=== PATIENT | female | born 1955 | race Asian ===

== ENCOUNTER → 2021-08-21 14:52 | Outpatient (CLI) | payer MEDICARE, OTHER, SELFPAY ==
[2021-08-21 16:15] LABS: COVID19 -Nasal RAPID Negative (Negative)
== END ==
PROVIDERS: Family Provider Registered Nurse Diabetes Educator; PCP Registered Nurse Diabetes Educator; Referring Provider Surgery; Visit Provider Surgery
DX: Z01.812 Encounter for preprocedural laboratory examination (principal); Z20.822 Contact with and (suspected) exposure to COVID-19
CPT/HCPCS: 87635; C9803

== ENCOUNTER 2021-08-22 12:28 | Day surgery (SDC) | payer MEDICARE, OTHER, SELFPAY ==
--- NOTE | 2021-08-22 | PATH_ITS ---
[facility] Accession Number: [id number] . 01 Material submitted: . PART A: rectum - RECTAL POLYP PART B: colon - ASCENDING COLON . 02 Diagnosis: A. Rectal Polyp: Tubular adenoma. . B. Ascending Colon: Tubular adenoma. MRV 08/26/2021 1518 Local . 02 Electronically signed: . Fabiola Feng MD, Pathologist NPI- [id number] . 01 Gross description: . Part A: RECTAL POLYP: Received in formalin is 1 fragment(s) of redding, soft tissue measuring 0.7 x 0.6 x 0.6 cm submitted entirely in 1 cassette(s) Part B: ASCENDING COLON : Received in formalin is 1 fragment(s) of redding, soft tissue measuring 0.3 x 0.2 x 0.2 cm submitted entirely in 1 cassette(s) /HOLLY 08/23/20211950 Local . 02 Pathologist provided ICD-10: K63.5 . 02 CPT . 923562 Performed at: 01 [facility] [address], [place], [place] [id number] MD José Miguel Cabello MD Phone: [phone] [facility]formed [facility]: 02 [facility] [address] [place], [place] [id number] MD Nery Bauer MD Phone: [phone]
[2021-08-22 12:55] VITALS: BP 125/79; PULSE 84; RESP 16; TEMP 36.3; O2SAT 95; BMI 30.1
[2021-08-22] MEDS: LACTATED RINGERS 1,000 ML 200 ML IV (13:03)
--- NOTE | 2021-08-22 13:47 | PM.HP.1 ---
History of Present Illness History of Present Illness Date Patient Seen: 08/22/21 Time Patient Seen: 13:48 Chief complaint: SDC Narrative: The patient presents for colorectal sreening following a positive fecal immunochemical test (FIT). Previous colonoscopy 12 years ago normal. No personal or family history of colon cancer. On further history denies any recent gastrointestinal symptoms. No nausea, vomiting, abdominal pain, loss of appetite, unexplained weight loss, change in bowel habits, diarrhea, constipation, melena, hematochezia, or bright red blood per rectum. Patient History Medical History Cholecystectomy planned Diabetes Hypertension Persistent headaches Sleep apnea with use of continuous positive airway pressure (CPAP) Smoker Surgical History Status post lumbar surgery Family & Social History Social History: household members spouse Tobacco & Substance use: Smoking Status Current every day smoker alcohol intake never Substance Use Type does not use Meds Home Medications and Allergies Home Medications Medication Instructions Recorded Confirmed Type allopurinol 300 mg tablet 300 mg PO DAILY 08/22/21 08/22/21 History amitriptyline 25 mg tablet 25 mg PO DAILY 08/22/21 08/22/21 History amlodipine 5 mg tablet 5 mg PO DAILY 08/22/21 08/22/21 History atorvastatin 80 mg tablet 80 mg PO DAILY 08/22/21 08/22/21 History dulaglutide 0.75 mg/0.5 mL 0.75 mg SUBCUT DAILY 08/22/21 08/22/21 History subcutaneous pen injector (Trulicity) levothyroxine 50 mcg tablet 50 mcg PO DAILY 08/22/21 08/22/21 History (Synthroid) lidocaine 5 % topical patch 1 patch TOPICAL DIRECTED 08/22/21 08/22/21 History losartan 25 mg tablet 25 mg PO DAILY 08/22/21 08/22/21 History losartan 25 mg tablet 25 mg PO DAILY 08/22/21 08/22/21 History metformin 500 mg tablet 500 mg PO DAILY 08/22/21 08/22/21 History Allergies Allergy/AdvReac Type Severity Reaction Status Date / Time lisinopril Allergy Swelling Verified 08/22/21 12:49 of Lip/Tongue/Throat meperidine [From Demerol] Allergy Difficulty Verified 08/22/21 12:49 Breathing oyster extract AdvReac Diarrhea Verified 08/22/21 12:49 Exam Vital Signs (past 8 hours): - 08/22/21 12:55 Temperature 97.4 F L Pulse Rate 84 Respiratory Rate 16 Blood Pressure 125/79 Pulse Oximetry 95 Oxygen Delivery Method Room Air Narrative Exam Narrative: GENERAL: Adult female in no apparent distress HEENT: No scleral icterus CV: Regular rate, no peripheral edema LUNGS: No increased work of breathing. Patient speaks in full sentences without oxygen support. ABDOMEN: Soft, non-tender, non-distended NEURO: Nonfocal, normal strength throughout SKIN: Warm and dry Assessment & Plan Assessment and plan (1) Positive FIT (fecal immunochemical test): Status: Acute Assessment & Plan narrative: The patient requires colorectal screening and colonoscopy is recommended secondary to a positive fecal immunochemical test. Technical details were discussed. Risks, benefits, alternatives explained. Risks including but not limited to myocardial infarction, aspiration, bleeding, pain, missed lesion, incomplete examination, need for further radiographic studies, colonic perforation, and need for major abdominal surgery were discussed. All questions were answered to their satisfaction, and they are in agreement with this plan. Time Spent With Patient Critical Care time: I spent a total of [] minutes of critical care time on this patient's care today; this time is exclusive of procedural time.
[2021-08-22] MEDS: MIDAZOLAM 5 MG/5 ML VIAL IV (14:01)
[2021-08-22] MEDS: fentaNYL 250 MCG/5 ML INJ IV (14:01)
--- NOTE | 2021-08-22 14:29 | PM.OP.COLON ---
Operative Date/Time/Diagnoses Date of procedure: 08/22/21 Time of procedure: 14:29 Pre-op diagnosis: Positive FIT Post-op diagnosis: same Procedure & Clinicians Study performed: Colonoscopy Same procedure as scheduled: Yes Indications: Positive FIT Surgeon: Oliverio Lowe Procedure Notes Procedure in detail: Medications: Conscious sedation using mg IV 5 midazolam and 200 mcg IV of fentanyl The history and physical was performed/updated and the patient is ASA class is 2. The procedure was discussed in detail with the patient. Potential risks complications including infection, bleeding, missed diagnosis, perforation, need for surgery, and were explained. Their questions were answered and informed consent was obtained. Patient was brought to the procedure room and placed standard monitoring equipment. The patient's vital signs were monitored continuously throughout the entire procedure. Prior to starting time-out was performed. The patient was placed in the left lateral recumbent position. Procedural sedation was administered. Examination began with a thorough inspection of the perianal area there was no evidence of fissures, fistulae, external hemorrhoids or cutaneous malignancy. The colonoscopy scope was then placed into the anal canal and was advanced to the cecum, which was identified by the ileocecal valve, the appendiceal orifice and the confluence of the taenia. The scope was then slowly withdrawn examining colon thoroughly in all directions, irrigating it of any residual stool. FINDINGS 1. Rectum-1 cm pedunculated polyp removed with cold snare. Distal to the lesion 3 mL of ink were injected into the submucosa 2. Ascending colon-3 mm polyp removed with biopsy forceps The patient tolerated the procedure well. They will be discharged once criteria are met. The prep was of good/excellent quality. The withdrawl time was 7minutes. The sedation time was 27 minutes. Specimen(s): other (rectal, ascending ) Complications: none Impression: colonic polyps Post-procedure Recommendations: Colonoscopy in 5 years Disposition: same day surgery
[2021-08-22 14:33] VITALS: BP 104/61; PULSE 70; RESP 16; TEMP 36.2; O2SAT 95
[2021-08-22 14:37] VITALS: BP 104/61; PULSE 71; RESP 15; O2SAT 94
[2021-08-22 14:42] VITALS: BP 105/59; PULSE 70; RESP 19; O2SAT 95
[2021-08-22 14:48] VITALS: BP 118/74; PULSE 76; RESP 14; TEMP 36.4; O2SAT 95
[2021-08-22 14:55] VITALS: BP 128/75; PULSE 71; RESP 21; TEMP 36.2; O2SAT 95
== END 2021-08-22 15:05 | disposition home or self-care (01) ==
PROVIDERS: Family Provider Registered Nurse Diabetes Educator; PCP Registered Nurse Diabetes Educator; Referring Provider Surgery; Visit Provider Surgery
PROC: 0DJD8ZZ Inspection of Lower Intestinal Tract, Via Natural or Artificial Opening Endoscopic (ICD-10-PCS; CPT 45378; principal; 2021-08-22 13:45)
DX: R19.5 Other fecal abnormalities (principal); F17.210 Nicotine dependence, cigarettes, uncomplicated; G47.30 Sleep apnea, unspecified; I10 Essential (primary) hypertension; E11.9 Type 2 diabetes mellitus without complications; D12.2 Benign neoplasm of ascending colon; D12.8 Benign neoplasm of rectum
CPT/HCPCS: 45381; 45385; 45380; 99152; 99153; J2250; J3010

== ENCOUNTER → 2022-03-05 08:45 | Outpatient (CLI) | payer MEDICARE, OTHER, SELFPAY ==
--- NOTE | 2022-03-05 | DI.US.S_ITS ---
PROCEDURE: US ABDOMEN LIMITED INDICATIONS: RUQ/ELEVATED ALK PHOS AND GGT TECHNIQUE: Real-time focused scanning was performed of the abdomen, with image documentation. COMPARISON: None. FINDINGS: The visible portions of the liver are homogeneous and normal in echotexture. The liver is normal size measuring 16.4 cm in length. The margin is smooth. No biliary dilatation or mass. The gallbladder is surgically absent. The extrahepatic bile duct is mildly dilated at 11 mm. The pancreas is normal. No ductal dilatation. No right upper quadrant free fluid. IMPRESSION: 1. Normal liver morphology. 2. Surgically absent gallbladder. 3. Borderline dilated common duct, most likely secondary to cholecystectomy state. Distal common duct stricture is not excluded. Consider MRCP if clinically indicated. Dictated by: Catie Blanca M.D. on 03/05/2022 at 12:07 Approved by: Catie Blanca M.D. on 03/05/2022 at 12:10
== END ==
PROVIDERS: Family Provider Registered Nurse Diabetes Educator; PCP Internal Medicine; Referring Provider Physician Assistant; Visit Provider Physician Assistant
DX: R74.8 Abnormal levels of other serum enzymes (principal); Z90.49 Acquired absence of other specified parts of digestive tract
CPT/HCPCS: 76705